=== PATIENT | female | born 1990 | race Caucasian/White ===

== ENCOUNTER 2016-07-26 21:10 | Emergency (ER) | payer OTHER ==
--- NOTE | ~2016-07-26 | CR195 ---
[facility] A Service of [facility] RADIOLOGY TEXT RESULTS PATIENT: MAYI EVANS LOCATION: [place] : [birth year] UNIT #: [id number] AGE: [address]: Mame Myers APRN SEX: F ORDER DR: [id number] [facility] [address] [place], [place] [address] [id number] MR#: [id number] Acc #: [id number] NAME: MAYI EVANS : 1990 SEX: F STUDY DATE/TIME: 07/26/2016 21:37 UNIT: [id number] ROOM: STUDY DESCRIPTION: Neck Soft Tissue Attending Physician: Mame Myers A.P.R.N. Ordering Physician: Mame Myers A.P.R.N. Primary Care Physician: [facility] MEDICAL IMAGING REPORT This report is preliminary unless electronic signature is present EXAM 2 views neck soft tissues. DATE: 07/26/2016 HISTORY Neck, sore throat pain for 2 days. COMPARISON None. FINDINGS The neck soft tissues appear within normal limits. No abnormal epiglottic thickening, lingual tonsillar thickening or adenoidal thickening is identified. No definite retained radiopaque foreign body is seen in the soft tissues. Cervical spine maintains satisfactory aligned. No subcutaneous air is identified. Lung apices appear clear. IMPRESSION Normal 2 views of the neck soft tissues. Dictated by... Camila Melgoza M.D. THIS IS AN ELECTRONICALLY VERIFIED REPORT Camila Melgoza M.D. at 07/28/2016 10:02 PM [facility]/heather TD: 07/27/2016 03:36 JOB #: [id number] MEDICAL IMAGING REPORT [facility] A Service [facility] RADIOLOGY TEXT RESULTS PATIENT: MAYI EVANS LOCATION: [place] : [birth year] UNIT #: [id number] AGE: [address]: Mame Myers APRN SEX: F ORDER DR: Page 1 of 1 COPY
[~2016-07-26 21:10] MED LIST: AMOXICILLIN PO; BACTRIM DS TABL1 TA1 PO; IBUPROFEN400 MG PO; KEFLEX PO; KEFLEX250 MG/5 M PO; NAPROSYN500 MG PO; PREDNISONE10 MG PO
== END 2016-07-26 22:05 | disposition home or self-care (01) ==
LOC: CFTX 21:10
DX: J02.9 Acute pharyngitis, unspecified (principal); J45.909 Unspecified asthma, uncomplicated; F17.210 Nicotine dependence, cigarettes, uncomplicated; Z88.5 Allergy status to narcotic agent
CPT/HCPCS: 70360; 87651; 99283